=== PATIENT | male | born 1990 | race Caucasian/White ===

== ENCOUNTER 2017-10-07 20:04 | Emergency (ER) | payer OTHER ==
[2017-10-07] MEDS ORDERED: ONDANSETRON PF 4 MG/2 ML VIAL. IV ONE ×2 (20:30→21:30)
[2017-10-07] MEDS ORDERED: PROMETHAZINE 12.5 MG in IV NORMAL SALINE 50ML 50 ML IV PRN (20:30)
[2017-10-07] MEDS ORDERED: IV NORMAL SALINE 1,000ML 1,000 ML IV SCH (20:30)
[2017-10-07 23:00] VITALS: BP 112/62
[2017-10-07] MEDS ORDERED: CLIN300C8 PO (23:02)
[2017-10-07] MEDS ORDERED: ONDA4TAB10 PO (23:04)
--- NOTE | 2017-10-07 23:06 | PHYS DOC ---
General Chief Complaint: NAUSEA/VOMITING/DIARRHEA Stated Complaint: TOOK HASH OIL FEELS IMPAIRED Time Seen by MD: 20:12 Source: patient, other Exam Limitations: intoxication Problems: History of Present Illness Initial Comments "I just feel really stoned" Patient is a 26-year-old male brought to the ED by a friend for reported vomiting due to marijuana intoxication. On arrival patient states that due to dental pain he smoked some marijuana oil tonight after which he developed some vomiting. He admits to frequent marijuana and marijuana oil use in the past and has had short periods of vomiting but tonight it seems more severe. He denies any focal abdominal discomfort or other ingestion. He's had intermittent nausea and vomiting for the past hour and throughout my entire interview although sluggish and apparently intoxicated is able to answer questions without burping retching or emesis. After taking his history and completing physical exam I asked him how he was currently feeling at which time he stated he felt nauseous and almost as if on cue began vomiting. Emesis was nonbloody and patient's vital signs were stable. He was accompanied intermittently by a friend. Timing/Duration: 1 hour Severity: moderate Modifying Factors: improves with other Associated Symptoms: nausea/vomiting Allergies: Coded Allergies: No Known Drug Allergies (Unverified , 10/07/17) Past Medical History Medical History: no pertinent history Surgical History: no surgical history Social History Smoker: cigarettes Alcohol: none Drugs: marijuana Review of Systems All Other Systems: Reviewed and Negative (due to intoxication full and accurate review of systems unreliable see history of present illness) Physical Exam General Appearance: thin (sluggish and lethargic but arousable to verbal stimulation) Eyes: bilateral eye PERRL, bilateral eye EOMI, bilateral eye other ( conjunctivae injected bilaterally) Ear, Nose, Throat: hearing grossly normal, normal ENT inspection, normal pharynx Neck: non-tender, supple Respiratory: normal breath sounds, no respiratory distress Cardiovascular: normal peripheral pulses, regular rate, rhythm Gastrointestinal: normal bowel sounds, non tender, soft Back: no CVA tenderness, no vertebral tenderness Extremities: normal range of motion, non-tender, normal inspection Neurologic/Psychiatric: dye range tender II-XII nml as tested, no motor/sensory deficits, oriented x 3, other (appears altered/intoxicated consistent with history, arousable to verbal stimuli and at all times protecting airway) Skin: warm/dry, pallor Orders, Labs, Meds Patient received Zofran and Phenergan intravenously as well as normal saline bolus. He became temporarily sedated with Phenergan and was observed for 3 hours without any new or progressive symptoms. Upon discharge he requests pain medication for his tooth which I refused for obvious reasons. He was advised to follow-up with his doctor or dentist tomorrow, no obvious dental trauma or emergent condition was noted on physical exam. Departure Time of Disposition: 23:04 Disposition: 01 HOME, SELF-CARE Diagnosis: vomitting, marijuana abuse, tooth pain Condition: IMPROVED Patient Instructions: Marijuana Abuse-Brief, Nausea and Vomiting, Wozx-et-Scon Additional Instructions: Please review the patient education materials given by nurse. Discontinue substance abuse, seeking medical assistance if necessary. Aggressive hydration with Gatorade or water. [id number] Tylenol and ibuprofen as needed for discomfort. Prescription: Zofran ODT, clindamycin You will need to follow-up with a dentist regarding your dental pain. Call tomorrow to schedule next available appointment. Follow-up with your doctor this week for recheck from ED visit. Return to ED with new or changing symptoms. MIRNA MACHADO DO Oct 07, 2017 23:06
[2017-10-07] MEDS ORDERED: ONDANSETRON 4MG ODT 4TABLET STARTPACK. PO ONE (23:15)
== END 2017-10-07 23:13 | disposition home or self-care (01) ==
LOC: ER 20:04
DX: F12.129 Cannabis abuse with intoxication, unspecified (principal); R11.2 Nausea with vomiting, unspecified; K08.89 Other specified disorders of teeth and supporting structures; F17.210 Nicotine dependence, cigarettes, uncomplicated
CPT/HCPCS: 96374; 96375; 96376; 99285; J2405; J2550; Q0162; 96365; J7030